=== PATIENT | female | born 1990 | race African-American/Black ===

== ENCOUNTER 2017-01-25 16:50 | Emergency (ER) | payer MEDICAID ==
[~2017-01-25] VITALS: Ht 162.6 cm; Wt 81.6 kg
[~2017-01-25 16:50] MED LIST: AMOXICILLIN500 MG ORAL; AUGMENTIN 875-1 EAC1 ORAL; CYCLOBENZAPRINE10 MG ORAL; DOXYCYCLINE MO100 MG ORAL; IBUPROFEN600 MG ORAL; IBUPROFEN800 MG ORAL; NKM; NORCO 5-325 TA1 EACH ORAL; PERIDEX 0.12% O15 ML ORO; TRAMADOL HCL50 MG ORAL; ZOFRAN4 M1 ORAL
--- NOTE | 2017-01-25 17:09 | Emergency Room Report ---
History of Present Illness General Chief Complaint: Vaginal Source: Patient (FADUMO PEARCE) Present Illness HPI 26 y/o female c/o multiple complaints. States for the past 3 days she's had severe abdominal cramping and abdominal pain. Associated symptoms include lower minimal pain, cramping, vaginal bleeding(several maxipads and tampons at the same time and bleeding through), increased urinary frequency, pelvic pressure, suprapubic abdominal pain. States that as last time she had this symptom and I be a urinary tract infection and he discovered at that time after imaging was completed and she had a grapefruit sized uterine fibroid in place. States that her bleeding has been constant since June of last year. States that she has IUD in place and has had irregular menses since over the past for half years that her IUD has been in place. Denies any provoking or relieving factors. Really not taking any medications. States her LMP was 30 days ago. States that her periods are irregular occurring every 3-4 weeks lasting for about 5 days. States her LMP was around December 22-. (FADUMO PEARCE) Allergies: Coded Allergies: No Known Allergies (Unverified , 02/16/14) Patient History Past Medical History: see triage record Past Surgical History: none Pertinent Family History: none Last Menstrual Period: "End of December" Now: No Reviewed Nursing Documentation: PMH: Agreed, PSxH: Agreed (FADUMO PEARCE) Nursing Documentation-PMH Hx Cancer: No Hx Gastrointestinal Problems: No Hx Neurological Problems: No (FADUMO PEARCE.[email or web address]) Review of Systems All Other Systems: negative except mentioned in HPI (FADUMO [email or web address].[email or web address]) Physical Exam Vital Signs Date Time Temp Pulse Resp B/P Pulse Ox O2 Delivery O2 Flow Rate FiO2 01/25/17 17:03 98.1 81 16 113/74 97 Room Air Sp02 EP Interpretation: reviewed, normal General Appearance: no apparent distress, alert, GCS 15, non-toxic, other - tearful and uncomfortable Head: normocephalic, atraumatic Eyes: bilateral eye PERRL, bilateral eye normal inspection ENT: hearing grossly normal, normal pharynx, no angioedema, normal voice Neck: full range of motion, supple/symm/no masses Respiratory: chest non-tender, lungs clear, normal breath sounds, speaking full sentences Cardiovascular #1: regular rate, rhythm, no edema Gastrointestinal: normal bowel sounds, non tender, soft, non-distended, tenderness - LLQ and suprapubic region is exquisitely tender Rectal: deferred Genitourinary: no CVA tenderness Musculoskeletal: back normal, gait/station normal, normal range of motion, non- tender Neurologic: alert, oriented x3, responsive, motor strength/tone normal, sensory intact, speech normal Psychiatric: judgement/insight normal, memory normal, mood/affect normal, no suicidal/homicidal ideation Skin: normal color, no rash, warm/dry, well hydrated (FADUMO PEARCE P.ACiera) Medical Decision Making PA Attestation Dr. Dowling is my supervising physician with whom patient management has been discussed with. (FADUMO PEARCE P.ACiera) Diagnostic Impression: Primary Impression: Pelvic pain Additional Impression: Fibroid uterus Qualified Codes: D25.9 - Leiomyoma of uterus, unspecified ER Course Care was transfered to Dr. Dowling after initial orders were placed. Laboratory Tests Test 01/25/17 17:19 01/25/17 18:15 Urine Color Pale yellow Urine Appearance Clear Urine pH 6.5 (4.5-8.0) Urine Specific [place] 1.015 (1.005-1.035) Urine Protein Negative (NEGATIVE) Urine Glucose (UA) Negative (NEGATIVE) Urine Ketones Negative (NEGATIVE) Urine Occult Blood Negative (NEGATIVE) Urine Nitrite Negative (NEGATIVE) Urine Bilirubin Negative (NEGATIVE) Urine Urobilinogen 1 MG/DL (0.0-1.0) H Urine Leukocyte Esterase 1+ (NEGATIVE) H Urine RBC 0-2 /HPF (0 - 2) Urine WBC 2-4 /HPF (0 - 2) Urine Squamous Epithelial Cells Few /LPF (NONE/OCC) Urine Bacteria Few /HPF (NONE) White Blood Count 10.5 K/UL (4.8-10.8) Red Blood Count 4.41 M/UL (4.20-5.40) Hemoglobin 11.7 G/DL (12.0-16.0) L Hematocrit 34.9 % (37.0-47.0) L Mean Corpuscular Volume 79 FL (80-99) L Mean Corpuscular Hemoglobin 26.4 PG (27.0-31.0) L Mean Corpuscular Hemoglobin Concent 33.4 G/DL (32.0-36.0) Red Cell Distribution Width 14.8 % (11.6-14.8) Platelet Count 247 K/UL (150-450) Mean Platelet Volume 6.4 FL (6.5-10.1) L Neutrophils (%) (Auto) 63.9 % (45.0-75.0) Lymphocytes (%) (Auto) 17.5 % (20.0-45.0) L Monocytes (%) (Auto) 9.6 % (1.0-10.0) Eosinophils (%) (Auto) 7.3 % (0.0-3.0) H Basophils (%) (Auto) 1.7 % (0.0-2.0) Sodium Level Pending Potassium Level Pending Chloride Level Pending Carbon Dioxide Level Pending Blood Urea Nitrogen Pending Creatinine Pending Estimate Glomerular Filtration Rate Pending Glucose Level Pending Calcium Level Pending Total Bilirubin Pending Aspartate Amino Transferase (AST) Pending Alanine Aminotransferase (ALT) Pending Alkaline Phosphatase Pending Total Protein Pending Albumin Pending Globulin Pending Lipase Pending Human Chorionic Gonadotropin, Quant Pending (FADUMO PEARCE P.A.) ER Course Please see full note from Mr. Pearce. CT with fibroids with necrosis and IUD. Patient improved. Patient stable for outpatient observation and treatment. Laboratory Tests Test 01/25/17 17:19 01/25/17 18:15 Urine Color Pale yellow Urine Appearance Clear Urine pH 6.5 (4.5-8.0) Urine Specific [place] 1.015 (1.005-1.035) Urine Protein Negative (NEGATIVE) Urine Glucose (UA) Negative (NEGATIVE) Urine Ketones Negative (NEGATIVE) Urine Occult Blood Negative (NEGATIVE) Urine Nitrite Negative (NEGATIVE) Urine Bilirubin Negative (NEGATIVE) Urine Urobilinogen 1 MG/DL (0.0-1.0) H Urine Leukocyte Esterase 1+ (NEGATIVE) H Urine RBC 0-2 /HPF (0 - 2) Urine WBC 2-4 /HPF (0 - 2) Urine Squamous Epithelial Cells Few /LPF (NONE/OCC) Urine Bacteria Few /HPF (NONE) White Blood Count 10.5 K/UL (4.8-10.8) Red Blood Count 4.41 M/UL (4.20-5.40) Hemoglobin 11.7 G/DL (12.0-16.0) L Hematocrit 34.9 % (37.0-47.0) L Mean Corpuscular Volume 79 FL (80-99) L Mean Corpuscular Hemoglobin 26.4 PG (27.0-31.0) L Mean Corpuscular Hemoglobin Concent 33.4 G/DL (32.0-36.0) Red Cell Distribution Width 14.8 % (11.6-14.8) Platelet Count 247 K/UL (150-450) Mean Platelet Volume 6.4 FL (6.5-10.1) L Neutrophils (%) (Auto) 63.9 % (45.0-75.0) Lymphocytes (%) (Auto) 17.5 % (20.0-45.0) L Monocytes (%) (Auto) 9.6 % (1.0-10.0) Eosinophils (%) (Auto) 7.3 % (0.0-3.0) H Basophils (%) (Auto) 1.7 % (0.0-2.0) Sodium Level 138 mEQ/L (135-145) Potassium Level 3.8 mEQ/L (3.4-4.9) Chloride Level 98 mEQ/L (98-107) Carbon Dioxide Level 25 mEQ/L (20-30) Anion Gap 15 (5-15) Blood Urea Nitrogen 19 mg/dL (7-23) Creatinine 1.1 mg/dL (0.5-0.9) H Estimate Glomerular Filtration Rate > 60 mL/min (>60) Glucose Level 88 mg/dL (74-106) Calcium Level 9.5 mg/dL (8.6-10.2) Total Bilirubin 0.4 mg/dL (0.0-1.2) Aspartate Amino Transferase (AST) 18 U/L (5-40) Alanine Aminotransferase (ALT) 13 U/L (3-33) Alkaline Phosphatase 76 U/L (35-104) Total Protein 6.8 g/dL (6.6-8.7) Albumin 4.1 g/dL (3.5-5.2) Globulin 2.7 g/dL Albumin/Globulin Ratio 1.5 (1.0-2.7) Lipase 24 U/L (< 60) Human Chorionic Gonadotropin, Quant < 1 mIU/mL (Dino Dowling M.D.) CT/MRI/US Diagnostic Results CT/MRI/US Diagnostic Results : Imaging Test Ordered: abd pelvis Impression Impression: Enlarged fibroid uterus, also previously described. There is evidence of interim necrosis of one or more lower uterine segment fibroids. Previously demonstrated left lower pole renal abnormality is no longer evident Focal fatty change of the liver, as described (Dino Dowling M.D.) Last Vital Signs Date Time Temp Pulse Resp B/P Pulse Ox O2 Delivery O2 Flow Rate FiO2 01/25/17 17:03 98.1 81 16 113/74 97 Room Air (NI,TAMEEM P.A.) Last Vital Signs Date Time Temp Pulse Resp B/P Pulse Ox O2 Delivery O2 Flow Rate FiO2 01/25/17 21:46 98.1 77 16 120/74 98 Room Air Status: improved (Dino Dowling M.D.) Disposition: HOME, SELF-CARE Condition: Improved Scripts Hydrocodone Bit/Acetaminophen 5-325* (NORCO 5-325*) 1 Each Tablet 1 TAB ORAL Q6H Y for For Pain, #10 TAB 0 Refills Prov: Dino Dowling M.D. 01/25/17 Ibuprofen* (MOTRIN*) 600 Mg Tablet 600 MG ORAL Q6H Y for For Pain, #20 TAB Prov: Dino Dowling M.D. 01/25/17 NITAMEEM P.A. Jan 25, 2017 17:09 Dino Dowling M.D. Jan 26, 2017 03:36
[2017-01-25] MEDS ORDERED: Ketorolac 30mg Inj IV ONE (17:30)
[2017-01-25 17:51] LABS: APPEARANCE,URINE CLEAR; KETONES,URINE NEGATIVE (NEGATIVE); LEUKOCYTE ESTERASE ,URINE 1+ (NEGATIVE); NITRITE,URINE NEGATIVE (NEGATIVE); PH,URINE 6.5 (4.5-8.0); PROTEIN,URINE NEGATIVE (NEGATIVE); UROBILINOGEN,URINE 1 MG/DL (0.0-1.0)
[2017-01-25 18:05] LABS: BACTERIA,URINE FEW /HPF; RBC,URINE 0-2 /HPF (0 - 2); SQUAMOUS EPITHELIAL CELL,UR FEW /LPF (NONE/OCC)
[2017-01-25 18:41] LABS: BASOPHILS % (AUTO) 1.7 % (0.0-2.0); EOSINOPHILS % (AUTO) 7.3 % (0.0-3.0); LYMPHOCYTES % (AUTO) 17.5 % (20.0-45.0); MEAN CORPUSCULAR HEMOGLOBIN 26.4 PG (27.0-31.0); MEAN CORPUSCULAR HGB CONC 33.4 G/DL (32.0-36.0); MEAN CORPUSCULAR VOLUME 79 FL (80-99); MEAN PLATELET VOLUME 6.4 FL (6.5-10.1); MONOCYTES % (AUTO) 9.6 % (1.0-10.0); NEUTROPHILS % (AUTO) 63.9 % (45.0-75.0); PLATELET COUNT 247 K/UL (150-450); RED BLOOD COUNT 4.41 M/UL (4.20-5.40); RED CELL DISTRIBUTION WIDTH 14.8 % (11.6-14.8); WHITE BLOOD COUNT 10.5 K/UL (4.8-10.8)
[2017-01-25 19:04] LABS: ALANINE AMINOTRANSFERASE 13 U/L (3-33); ALBUMIN/GLOBULIN RATIO 1.5 (1.0-2.7); ANION GAP 15 (5-15); ASPARTATE AMINO TRANSFERASE 18 U/L (5-40); CALCIUM 9.5 mg/dL (8.6-10.2); CARBON DIOXIDE 25 mEQ/L (20-30); CHLORIDE 98 mEQ/L (98-107); CREATININE 1.1 mg/dL (0.5-0.9); GLOMERULAR FILTRATION RATE > 60 mL/min (>60); HEMOLYSIS 2; LIPASE 24 U/L (< 60); POTASSIUM 3.8 mEQ/L (3.4-4.9); SODIUM 138 mEQ/L (135-145); TOTAL PROTEIN 6.8 g/dL (6.6-8.7)
[2017-01-25] MEDS ORDERED: IBUPROFEN600 MG ORAL (21:41)
[2017-01-25] MEDS ORDERED: NORCO 5-325 TA1 EACH ORAL (21:41)
[2017-01-25 21:46] VITALS: BP 120/74
--- NOTE | 2017-01-26 09:17 | Diagnostic Imaging Report ---
Clinical Indication: Lower abdominal pain, abnormal vaginal bleeding with cramping x3 days, history of fibroids Technique: Patient given oral contrast. IV administration nonionic contrast. Venous phase spiral acquisition obtained through the abdomen and pelvis. Multiplanar reconstructions were generated. Total dose length product 839 mGycm. CTDIvol(s) 16 mGy. Dose reduction achieved using automated exposure control Comparison: 05/24/2016 Findings: The appendix is normal. No evidence of diverticulosis or diverticulitis. No small bowel distention. No free or loculated intraperitoneal air or fluid. Distal esophagus, stomach, duodenum are unremarkable. As previously, the uterus is diffusely enlarged and heterogeneous, consistent with multiple fibroids. It appears somewhat increased in size relative to the prior exam. There is some low-attenuation within one or 2 fibroids in the lower uterine myometrium which was not evident previously, likely reflects necrosis. Intrauterine device is again demonstrated. The ovaries are unremarkable. The liver demonstrates focal fatty change in the usual location adjacent to the fissure for the ligamentum teres. It is otherwise unremarkable. The gallbladder, bile ducts, pancreas, spleen, adrenals, kidneys are unremarkable. Previously demonstrated lower left renal abnormality is no longer evident. No mesenteric or retroperitoneal mass or adenopathy. Impression: Enlarged fibroid uterus, also previously described. There is evidence of interim necrosis of one or more lower uterine segment fibroids. Previously demonstrated left lower pole renal abnormality is no longer evident Focal fatty change of the liver, as described This agrees with the preliminary interpretation provided overnight by Dr. Henry The CT scanner at [facility] is accredited by the [employer] and the scans are performed using protocols designed to limit radiation exposure to as low as reasonably achievable to attain images of sufficient resolution adequate for diagnostic evaluation.
== END 2017-01-25 21:49 | disposition home or self-care (01) ==
LOC: EMR 17:30
DX: R10.2 Pelvic and perineal pain (principal); D25.9 Leiomyoma of uterus, unspecified; Z97.5 Presence of (intrauterine) contraceptive device; K76.0 Fatty (change of) liver, not elsewhere classified
CPT/HCPCS: 36415; 74177; 80053; 81003; 83690; 84702; 85025; 96374; 96375; 99284; J1885; J2405; Q9967

== ENCOUNTER 2017-02-22 22:04 | Emergency (ER) | payer MEDICAID ==
[~2017-02-22] VITALS: Ht 162.6 cm; Wt 85.3 kg
[2017-02-22 22:15] VITALS: BP 120/92
--- NOTE | 2017-02-22 22:32 | Emergency Room Report ---
History of Present Illness General Chief Complaint: Upper Respiratory Illness Source: Patient Present Illness HPI Patient presents with complaints of cough and congestion over the past several days Reports episode of vomiting with the increased cough Patient does smoke marijuana She had a mild sore throat Denies any chest pain Denies any back or flank pain Denies any dysuria frequency Denies any recent travel or pleurisy Allergies: Coded Allergies: No Known Allergies (Unverified , 02/16/14) Patient History Past Medical History: see triage record Pertinent Family History: none Last Menstrual Period: February Reviewed Nursing Documentation: PMH: Agreed, PSxH: Agreed Nursing Documentation-PMH Hx Cancer: No Hx Gastrointestinal Problems: No Hx Neurological Problems: No Review of Systems All Other Systems: negative except mentioned in HPI Physical Exam Vital Signs Date Time Temp Pulse Resp B/P Pulse Ox O2 Delivery O2 Flow Rate FiO2 02/22/17 22:08 98.4 88 16 125/90 99 Room Air Sp02 EP Interpretation: reviewed, normal General Appearance: well appearing, no apparent distress Head: normocephalic, atraumatic Eyes: bilateral eye EOMI, bilateral eye PERRL ENT: hearing grossly normal, normal pharynx, TMs + canals normal, uvula midline Neck: full range of motion, supple, no meningismus, no bony tend Respiratory: lungs clear, normal breath sounds, no rhonchi, no respiratory distress, no retraction, no accessory muscle use Cardiovascular #1: normal peripheral pulses, regular rate, rhythm, no edema, no gallop, no JVD, no murmur Gastrointestinal: normal bowel sounds, non tender, soft, no mass, no organomegaly, non-distended, no guarding, no hernia, no pulsatile mass, no rebound Genitourinary: no CVA tenderness Musculoskeletal: normal inspection Neurologic: oriented x3, responsive, corporate legal secretary III-XII nml as tested, motor strength/ tone normal, sensory intact Psychiatric: mood/affect normal Skin: normal color, no rash, warm/dry, palpation normal Lymphatic: normal inspection, no adenopathy Medical Decision Making Diagnostic Impression: Primary Impression: Atypical pneumonia ER Course Multiple differentials are considered Patient's chest x-ray does not show any obvious acute disease Given the symptoms and duration patient is treated conservatively initially and will have close outpatient followup Chest X-Ray Diagnostic Results EP Interpretation: Yes Findings: no consolidation, no effusion, no pneumothorax Number of Views: 1 Last Vital Signs Date Time Temp Pulse Resp B/P Pulse Ox O2 Delivery O2 Flow Rate FiO2 02/22/17 22:08 98.4 88 16 125/90 99 Room Air Status: improved Disposition: HOME, SELF-CARE Condition: Improved Scripts Guaifenesin/Codeine Phos* (ROBITUSSIN AC*) 118 Ml Liquid 5 ML ORAL QHS Y for For Cough for 5 Days, #118 ML 0 Refills Prov: GEOVANNI MELENDREZ D.O. 02/22/17 Azithromycin* (ZITHROMAX*) 250 Mg Tablet 250 MG ORAL DAILY, #6 TAB 0 Refills Take two tablets by mouth today, then take one tablet by mouth daily for four days Prov: GEOVANNI MELENDREZ D.O. 02/22/17 Additional Instructions: Patient is provided with the discharge instructions notified to follow up with primary doctor in the next 2-3 days otherwise return to the er with any worsening symptoms. Please note that this report is being documented using '[employer] technology. This can lead to erroneous entry secondary to incorrect interpretation by the dictating instrument. GEOVANNI MELENDREZ D.O. February 22, 2017 22:32
[2017-02-22] MEDS ORDERED: GUAIFENESIN-CO118 M1 ORAL (22:54)
[2017-02-22] MEDS ORDERED: AZITHROMYCIN250 MG ORAL (22:54)
[2017-02-22 23:10] VITALS: BP 119/89
--- NOTE | 2017-02-23 10:19 | Diagnostic Imaging Report ---
Indication: SOB Technique: One view of the chest Comparison: none Findings: Lungs and pleural spaces are clear. Heart size is normal. Impression: No acute process This agrees with the preliminary interpretation provided by the emergency room physician
== END 2017-02-22 23:10 | disposition home or self-care (01) ==
LOC: EMR 22:39
DX: J18.9 Pneumonia, unspecified organism (principal)
CPT/HCPCS: 71010; 99284

== ENCOUNTER 2019-07-04 17:59 | Emergency (ER) | payer MEDICAID ==
[~2019-07-04] VITALS: Ht 162.6 cm; Wt 88.5 kg
[~2019-07-04 17:59] MED LIST changes: +AZITHROMYCIN250 MG ORAL; +GUAIFENESIN-CO118 M1 ORAL
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
[2019-07-04 18:19] VITALS: BP 135/74
--- NOTE | 2019-07-04 18:27 | NUR ---
ER provider at bedside.
--- NOTE | 2019-07-04 18:47 | NUR ---
ED Nurse Note: Radiology technicians at bedside.
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
[2019-07-04] MEDS ORDERED: IBUPROFEN600 MG ORAL (18:57)
[2019-07-04] MEDS ORDERED: VOLTAREN100 G1 TP (18:57)
--- NOTE | 2019-07-04 19:09 | NUR ---
ED Nurse Note: Patient cleared for discharge, left forearm has been fadia wrapped, and verbalizes understanding of discharge instructions. Patient departed with all belongings.
[2019-07-04 19:17] VITALS: BP 135/74
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
== END 2019-07-04 19:18 | disposition home or self-care (01) ==
LOC: EMR 18:55
DX: S50.12XA Contusion of left forearm, initial encounter (principal); Y04.2XXA Assault by strike against or bumped into by another person, initial encounter; Y92.9 Unspecified place or not applicable; Y99.0 Civilian activity done for income or pay
CPT/HCPCS: 73090; Z7502; 99283

== ENCOUNTER 2019-10-10 12:36 | Emergency (ER) | payer SELFPAY ==
[~2019-10-10] VITALS: Ht 165.1 cm; Wt 81.6 kg
[~2019-10-10 12:36] MED LIST changes: +VOLTAREN100 G1 TP
[2019-10-10 12:59] VITALS: BP 133/67
--- NOTE | 2019-10-10 13:00 | NUR ---
ED Nurse Note:pt. came from home with flu like symptoms
[2019-10-10] MEDS ORDERED: TAMIFLU75 MG ORAL (13:36)
[2019-10-10] MEDS ORDERED: ALBUTEROL SULF8.5 GM INH (13:36)
[2019-10-10] MEDS ORDERED: PROMETHAZINE-C118 M1 ORAL (13:36)
--- NOTE | 2019-10-10 13:40 | NUR ---
ER DISCHARGE NOTE: Patient is cleared to be discharged per ERMD, pt is aox4, on room air, with stable vital signs. pt was given dc and prescription instructions, pt was able to verbalize understanding, pt is able to ambulate with steady gait. pt took all belongings.
[2019-10-10 13:48] VITALS: BP 133/67
--- NOTE | 2019-10-10 22:33 | Emergency Room Report ---
History of Present Illness General Chief Complaint: Flu Like Symptoms Source: Patient Present Illness HPI 29-year-old female presents ED for evaluation. Complaining of runny nose, cough , congestion x2 days. Cough is productive with greenish phlegm. Denies fevers or chills. Denies sick contacts or recent travel. No other aggravating relieving factors. Denies any other associated symptoms Allergies: Coded Allergies: No Known Allergies (Unverified , 02/16/14) Patient History Past Medical History: none Past Surgical History: none Pertinent Family History: none Social History: Denies: smoking, alcohol use, drug use Last Menstrual Period: 10/09/19 Now: No Immunizations: UTD Reviewed Nursing Documentation: PMH: Agreed; PSxH: Agreed Nursing Documentation-PMH Past Medical History: No Stated History Hx Cancer: No Hx Gastrointestinal Problems: No Hx Neurological Problems: No Review of Systems All Other Systems: negative except mentioned in HPI Physical Exam Vital Signs Date Time Temp Pulse Resp B/P (MAP) Pulse Ox O2 Delivery O2 Flow Rate FiO2 10/10/19 12:42 98.1 58 16 133/67 (89) 99 Room Air Sp02 EP Interpretation: reviewed, normal General Appearance: no apparent distress, alert, GCS 15, non-toxic Head: normocephalic, atraumatic Eyes: bilateral eye normal inspection, bilateral eye PERRL ENT: hearing grossly normal, normal pharynx, no angioedema, normal voice Neck: full range of motion, supple/symm/no masses Respiratory: chest non-tender, lungs clear, normal breath sounds, speaking full sentences Cardiovascular #1: regular rate, rhythm, no edema Cardiovascular #2: 2+ carotid (R), 2+ carotid (L), 2+ radial (R), 2+ radial (L) , 2+ dorsalis pedis (R), 2+ dorsalis pedis (L) Gastrointestinal: normal bowel sounds, non tender, soft, non-distended, no guarding, no rebound Rectal: deferred Genitourinary: normal inspection, no CVA tenderness Musculoskeletal: back normal, normal range of motion, gait/station normal, non- tender Neurologic: alert, motor strength/tone normal, oriented x3, sensory intact, responsive, speech normal Psychiatric: judgement/insight normal, memory normal, mood/affect normal, no suicidal/homicidal ideation Reflexes: 3+ bicep (R), 3+ bicep (L), 3+ tricep (R), 3+ tricep (L), 3+ knee (R) , 3+ knee (L) Lymphatic: no adenopathy Medical Decision Making Diagnostic Impression: Primary Impression: Influenza-like symptoms ER Course Hospital Course 29-year-old F presents to ED complaining of runny nose, cough and congestion Differential diagnoses include: URI, pharyngitis, otitis media, influenza Clinical course Patient placed on stretcher. After initial history physical exam reveals a female in no acute distress. Bilateral TM unremarkable, no pharyngeal erythema. Lungs clear. No CVA tenderness. Discussed findings with the patient. Consideration for influenza. Given that I will treat her with Tamiflu Safe for discharge for close outpatient follow-up. I will provide referrals Diagnosis - influenza-like symptoms Stable and discharged home with prescriptions for tamiflu, albuterol, promethazine/codeine . drink plenty of fluids. Instructed to followup with PMD. Return to ED if symptoms recur or worsen Last Vital Signs Date Time Temp Pulse Resp B/P (MAP) Pulse Ox O2 Delivery O2 Flow Rate FiO2 10/10/19 13:48 98.1 16 133/67 99 Room Air 10/10/19 12:59 58 Status: improved Disposition: HOME, SELF-CARE Condition: Stable Scripts Codeine/Promethazine Hcl* (PROMETHAZINE-CODEINE SYRUP*) 118 Ml Syrup 5 ML ORAL Q6H PRN for For Cough, #118 ML 0 Refills Prov: Sea Liao MD 10/10/19 Albuterol Sulfate* (ALBUTEROL SULFATE MDI*) 8.5 Gm Hfa.aer.ad 2 PUFF INH Q6H, #1 EA 0 Refills Prov: Sea Liao MD 10/10/19 Oseltamivir Phosphate (Tamiflu) 75 Mg Capsule 75 MG ORAL TWICE A DAY for 5 Days, CAP Prov: Sea Liao MD 10/10/19 Referrals: NOT CHOSEN IPA/,REFERRING (PCP) Regan Horan [facility]. [facility] Departure Forms: Return to Work Return to Work Date: Oct 12, 2019 Work Restrictions: None Patient Instructions: Influenza, Adult, [id number] Sea Liao MD Oct 10, 2019 22:33
== END 2019-10-10 14:00 | disposition home or self-care (01) ==
LOC: EMR 14:00
DX: R05 Cough (principal)
CPT/HCPCS: 99282